=== PATIENT | male | born 1970 | race Caucasian/White ===

== ENCOUNTER 2017-04-12 22:16 | Emergency (ER) | payer OTHER, MEDICAID ==
[~2017-04-12] VITALS: Ht 170.2 cm; Wt 150.1 kg
[2017-04-13 01:20] VITALS: BP 142/86
== END 2017-04-13 01:20 | disposition home or self-care (01) ==
LOC: ED 22:16
DX: G51.0 Bell's palsy (principal); E11.9 Type 2 diabetes mellitus without complications; I10 Essential (primary) hypertension; F17.210 Nicotine dependence, cigarettes, uncomplicated; Z79.84 Long term (current) use of oral hypoglycemic drugs
CPT/HCPCS: J3010; J7512

== ENCOUNTER 2017-07-04 16:58 | Emergency (ER) | payer OTHER, MEDICAID ==
[~2017-07-04] VITALS: Ht 170.2 cm; Wt 142.9 kg
[2017-07-04 21:19] VITALS: BP 125/98
== END 2017-07-04 21:20 | disposition home or self-care (01) ==
LOC: ED 16:58
DX: L02.215 Cutaneous abscess of perineum (principal); I10 Essential (primary) hypertension; E11.9 Type 2 diabetes mellitus without complications; E66.9 Obesity, unspecified; Z68.41 Body mass index [BMI] 40.0-44.9, adult; Z88.6 Allergy status to analgesic agent
CPT/HCPCS: J1170; J2001; Q0162

== ENCOUNTER 2017-07-07 00:41 | Emergency (ER) | payer OTHER, MEDICAID ==
[~2017-07-07] VITALS: Ht 170.2 cm; Wt 140.6 kg
[2017-07-07 01:31] VITALS: BP 173/93
== END 2017-07-07 01:31 | disposition home or self-care (01) ==
LOC: ED 00:41
DX: Z48.01 Encounter for change or removal of surgical wound dressing (principal)